=== PATIENT | male | born 2000 | race Caucasian/White ===

== ENCOUNTER 2018-10-12 22:56 | Emergency (ER) | payer BC ==
[~2018-10-12] VITALS: Ht 182.9 cm; Wt 59.1 kg
[2018-10-12 22:59] VITALS: BP 139/88; TEMP 97.6
[2018-10-12] MEDS ORDERED: TRILEPTAL 150M150 MG PO (23:03)
[2018-10-12 23:46] VITALS: PULSE 81
== END 2018-10-12 23:47 | disposition home or self-care (01) ==
LOC: COL.ER 22:56
DX: S01.01XA Laceration without foreign body of scalp, initial encounter (principal); F84.0 Autistic disorder; W22.8XXA Striking against or struck by other objects, initial encounter; Y92.009 Unspecified place in unspecified non-institutional (private) residence as the place of occurrence of the external cause